=== PATIENT | male | born 1945 | race Caucasian/White ===

== ENCOUNTER → 2017-02-18 | Outpatient (CLI) | payer OTHER ==
[~2017-02-18] MED LIST: GLUCOPHAGE1000 MG PO; [UNRECOGNIZED DRUG - REMARK] PO
== END ==
LOC: COL.RAD 09:20
DX: Z01.89 Encounter for other specified special examinations (principal); Z53.9 Procedure and treatment not carried out, unspecified reason

== ENCOUNTER → 2017-03-14 | Outpatient (REF) | LOC: ZLAB.WCH 17:58 | DX: Z01.89 Encounter for other specified special examinations (principal) ==

== ENCOUNTER → 2017-03-16 | Outpatient (REF) | LOC: ZLAB.WCH 11:22 | DX: Z01.89 Encounter for other specified special examinations (principal) ==

== ENCOUNTER → 2017-03-18 | Outpatient (REF) | LOC: ZLAB.WCH 10:31 | DX: Z01.89 Encounter for other specified special examinations (principal) ==

== ENCOUNTER 2017-04-08 11:07 | Outpatient (RCR) | payer OTHER ==
[~2017-04-08] VITALS: Ht 175.3 cm; Wt 90.9 kg
[2017-04-08] MEDS ORDERED: GLUCOPHAGE1000 MG PO (12:08)
[2017-04-08] MEDS ORDERED: [UNRECOGNIZED DRUG - REMARK] PO (12:09)
[2017-04-08 12:10] VITALS: BP 133/81; PULSE 86; TEMP 97.3
== END 2017-04-08 12:22 | disposition home or self-care (01) ==
LOC: EUO 11:07
DX: M86.8X7 Other osteomyelitis, ankle and foot (principal); L03.032 Cellulitis of left toe
CPT/HCPCS: C1751

== ENCOUNTER → 2017-04-08 | Outpatient (REF) | LOC: ZLAB.WCH 18:11 | DX: Z01.89 Encounter for other specified special examinations (principal) ==

== ENCOUNTER → 2017-04-10 | Outpatient (REF) | LOC: ZLAB.WCH 11:00 | DX: Z01.89 Encounter for other specified special examinations (principal) ==

== ENCOUNTER → 2017-04-12 | Outpatient (REF) | LOC: ZLAB.WCH 08:34 | DX: Z01.89 Encounter for other specified special examinations (principal) ==

== ENCOUNTER → 2017-04-15 | Outpatient (REF) | LOC: ZLAB.WCH 09:01 | DX: Z01.89 Encounter for other specified special examinations (principal) ==

== ENCOUNTER → 2017-04-17 | Outpatient (REF) | LOC: ZLAB.WCH 15:50 | DX: Z01.89 Encounter for other specified special examinations (principal) ==

== ENCOUNTER → 2017-04-22 | Outpatient (REF) | LOC: ZLAB.WCH 11:36 | DX: Z01.89 Encounter for other specified special examinations (principal) ==

== ENCOUNTER → 2017-04-22 | Outpatient (REF) | LOC: ZAIV 04-18 06:00 | DX: Z02.89 Encounter for other administrative examinations (principal) ==

== ENCOUNTER → 2018-06-02 | Outpatient (REF) | LOC: ZLAB.WCH 18:10 | DX: Z01.89 Encounter for other specified special examinations (principal) ==

== ENCOUNTER → 2018-06-05 | Outpatient (REF) | LOC: ZLAB.WCH 16:31 | DX: Z01.89 Encounter for other specified special examinations (principal) ==